=== PATIENT | female | born 1950 | race Caucasian/White ===

== ENCOUNTER 2021-02-26 07:43 | Day surgery (SDC) | payer OTHER, SELFPAY ==
[2021-02-20 14:15] VITALS: BMI 27.7
[2021-02-26 08:51] VITALS: BP 132/61; PULSE 54; RESP 20; TEMP 36.8; O2SAT 97
--- NOTE | 2021-02-26 08:53 | HO.ANESPROP2 ---
HPI - Anesthesia Eval Consult details Narrative: 71 yo female patient here for Left cataract extraction, IOL insertion PMFSH Past Medical History Medical History Elevated cholesterol History of skin cancer HTN (hypertension) Hx of benign neoplasm of brain Hx of retinal detachment Legally blind Family History Family history of problems with anesthesia: No Surgical History Surgical History H/O colonoscopy History of bladder suspension procedure History of lumbar fusion History of total left knee replacement Hx of brain surgery Hx of cataract extraction Hx of detached retina repair Hx of hernia repair History of Problems with Anesthesia: No Social History Social History Smoking Status: Former smoker Smoking Quit Date: 1990 Use of substances other than those prescribed or required for medical reasons: No Have you been hit, kicked, punched, or otherwise hurt by someone within the past year? If so, by whom?: No Are you DNR?: No Advance Directives Information Provided: No Recently lost weight without trying: No Eating poorly because of decreased appetite: No Nutrition Risks: No Nutritional Risk Poor oral hygiene: No Meds Allergies Allergy/AdvReac Type Severity Reaction Status Date / Time NSAIDS (Non-Steroidal Allergy Intermediate affected Verified 02/20/21 14:23 Anti-Inflamma renal function Active Medications: Current Medications Generic Name Dose Route Start Last Admin Trade Name Freq PRN Reason Stop Dose Admin Povidone Iodine 1 appl 02/26/21 08:27 Povidone Iodine 5 % Ophth Soln 30 Ml Bottle EYE-LEFT PREOP PRN Pre-Op Surgical Implant Prophy Home Medications Medication Instructions Recorded Confirmed Last Taken Type amitriptyline 25 mg PO BEDTIME 02/20/21 02/20/21 Unknown History docusate sodium [Colace] 100 mg PO DAILY 02/20/21 02/20/21 Unknown History lisinopril-hydrochlorothiazide 1 tab PO DAILY 02/20/21 02/20/21 Unknown History pantoprazole [Protonix] 40 mg PO DAILY 02/20/21 02/20/21 Unknown History rosuvastatin 10 mg PO BEDTIME 02/20/21 02/20/21 Unknown History Exam Exam Date and Time: February 26, 2021 0853 Height,Weight and Vital Signs: Height 5 ft 6 in Weight 78.018 kg Vital Signs Temp Pulse Resp BP Pulse Ox 02/26/21 08:51 98.2 F 54 20 132/61 97 Airway Mallampati Class: II TM Dist: >3cm Neck ROM: Full Heart: RRR Lungs: CTAB Assessment and Plan Assessment Anesthesia Assessment: Anesthesia Plan Discussed and Chart Reviewed Final Anesthetic Review NPO: Yes ASA Class: II Final Preanesthetic Review: No Changes in Pt Med Stat, Meds/Allgs Chart Reviewed, Consent Obtained/Reviewed and Anes Risks/Benef Reviewed Patient Risk: Low Procedure Risk: Low Assessment/Block/Sedation in SS: Assess/Block/Sedation-SS Anesthetic Plan Anesthetic Plan: MAC: Disposition: Standard PACU
[2021-02-26] MEDS: Tetracaine HCl/PF 0.5% Oph Sol 4 ML DROPS 1 DROP EYE-LEFT (09:04)
[2021-02-26] MEDS: Tropicamide 1 % Ophth Sol 3 ML BTL 1 DROP EYE-LEFT ×3 (09:05→09:14)
[2021-02-26] MEDS: Phenylephrine HCL 2.5% Oph SoL 2 ML BOTTLE 1 DROP EYE-LEFT ×3 (09:08→09:18)
[2021-02-26] MEDS: Lactated Ringers 1,000 ML 50 ML IV (09:14)
--- NOTE | 2021-02-26 09:39 | HO.PNOPHT ---
Ophthalmology Procedure Procedure Date of Service: 02/26/21 Ophthalmology Viscoelastic: Healon Duet Dual Pack Pro Ophthalmology Lenses: TECNIS [id number] (20.5) Procedure Notes: PREOPERATIVE DIAGNOSIS: Decreased visual acuity left eye secondary to cataract POSTOPERATIVE DIAGNOSIS: Same PROCEDURE: Left cataract extraction with intraocular lens insertion SURGEON: Greg Valente M.D. ANESTHESIA: Topical/MAC ESTIMATED BLOOD LOSS: None COMPLICATIONS: None After obtaining informed consent, the patient was brought to the operation room suite and placed in the supine position. After adequate sedation per anesthesia, topical drops of Tetracaine were given to the left eye. The eye was then prepped and draped in the usual sterile fashion. The operating room microscope was then positioned over the operative eye and a lid speculum placed. A paracentesis was created. Viscoelastic was then instilled into the anterior chamber. A three plane incision was then created temporally, utilizing a 2.85 mm keratome. Capsulotomy forceps were then utilized to create a circular tear capsulotomy. Hydrodissection and hydrodelineation were carried out until adequate mobilization of the nucleus occurred. Phacoemulsification was then utilized to remove the dense central nucleus followed by removal of the cortical material utilizing the automated aspiration irrigation unit. Viscoat elastic was instilled into the posterior capsular bag followed by placement of a posterior chamber intraocular lens without difficulty. The residual Viscoat elastic was then removed utilizing the automated IA machine. The wound was check and found to be watertight. The patient tolerated the procedure well and the lid speculum was removed. Intracameral injection of Vigamox 0.1 mL followed by a subtenon injection of Kenalog-40 0.2 mL were administered. The patient will be seen in the a.m.
[2021-02-26 10:00] VITALS: BP 143/70; PULSE 61; RESP 18; TEMP 36.1; O2SAT 96
== END 2021-02-26 10:17 | disposition home or self-care (01) ==
PROVIDERS: PCP Family Medicine; Visit Provider Ophthalmology
PROC: (CPT 66985; principal; 2021-02-26 10:00)
DX: H25.12 Age-related nuclear cataract, left eye (principal); H54.7 Unspecified visual loss; Z96.1 Presence of intraocular lens; I10 Essential (primary) hypertension; Z87.891 Personal history of nicotine dependence; Z79.899 Other long term (current) drug therapy; Z85.828 Personal history of other malignant neoplasm of skin
CPT/HCPCS: 66984; J2250; J3010; J3300; V2632

== ENCOUNTER 2022-03-04 11:33 | Outpatient (REF) | payer OTHER, SELFPAY ==
[2022-03-04 11:46] VITALS: BP 139/67; PULSE 63; RESP 16; TEMP 36.1; O2SAT 98
[2022-03-04 11:50] VITALS: BMI 28.3
== END 2022-03-04 11:34 | disposition home or self-care (01) ==
LOC: HO.MS 11:33
PROVIDERS: PCP Family Medicine; Visit Provider Ophthalmology
PROC: (CPT 66821; principal; 2022-03-04 12:30)
DX: H26.492 Other secondary cataract, left eye (principal); Z86.69 Personal history of other diseases of the nervous system and sense organs; Z96.1 Presence of intraocular lens; I10 Essential (primary) hypertension; Z87.891 Personal history of nicotine dependence; Z79.899 Other long term (current) drug therapy
CPT/HCPCS: 66821

== ENCOUNTER 2023-07-28 13:15 | Outpatient (AMB) | payer OTHER, SELFPAY ==
--- NOTE | 2023-07-28 13:30 | MHC.OFFVIS ---
Intake Vital Signs 07/28/23 13:39 Height 5 ft 5 in Weight 171 lb BMI 28.5 Blood Pressure Location Lt brachial Position Sitting Respiration 14 Pulse 66 Pulse Source Pulse Oximeter Pulse Oximetry (%) 97 Oxygen Delivery Method Room Air Intake Visit Reasons: SIJ pain Allergies NSAIDS (Non-Steroidal Anti-Inflamma Allergy (Intermediate, Verified 02/20/21 14:23) affected renal function Medication List - Last Reconciled 07/28/23 by Rosa Luo LPN acetaminophen-caffeine 500-65 mg 1 tab PO Q12H PRN amitriptyline 25 mg PO BEDTIME amlodipine 5 mg PO DAILY ascorbic acid (vitamin C) ER 1,000 mg PO .HS biotin 10,000 mcg PO DAILY coioeaeemq-awbsdamyqkiyo-ybuo 50-300-40 mg (Fioricet) 1 cap PO Q8H PRN gxntoas-N6-bdaj-copper-tammy 325 mg-12.5 mcg -2.75 mg 1 tab PO DAILY chondroitin sulfate A sodium 600 mg PO DAILY coenzyme Q10 100 mg PO DAILY diazepam 2 mg PO BID docusate sodium (Colace) 100 mg PO DAILY lutein 40 mg PO DAILY magnesium 500 mg PO DAILY omega 3-puo-nrq-fish oil 1,000 mg (120 mg-180 mg) (Fish Oil) 1 cap PO DAILY pantoprazole (Protonix) 40 mg PO DAILY rosuvastatin 10 mg PO BEDTIME turmeric root extract 800 mg PO DAILY valsartan-hydrochlorothiazide 320-25 mg 1 tab PO DAILY HPI SIJ pain HPI Details 73-year-old female who presents today to the office for an evaluation of SIJ pain. The patient had the right SIJ injection on 04/24/[address] Adair, which provided minimal relief. The patient fell down the basement stairs in the fall of 2021, sustained a skull fracture and a concussion, and was hospitalized for several days. Since then, she has had increasing pain in the right hip, especially with prolonged standing. The pain radiates down the leg, with numbness in the last two toes. She has pain with standing, uphill walking, stair climbing, and lying on the right side at night. She also has a long-standing history of low back issues and underwent L4-5 fusion surgery in 2009. Today her symptoms are mostly on the right side; they start in the lower back area as a stabbing, aching sensation that radiates into the right buttock, right thighs, and then the right calf, including the toes, where she has a pins and needles sensation. She is unable to sleep normally or do her daily activities. Weather changes and movements make the pain worse. Heat, topical medications, and oral medications make it better. She has been using Tylenol with some success. Her pain is worst early in the morning, when she first wakes up, and also later in the night. The rest of the day, she is a little bit better, but her intensity increases every day. History is also notable for osteopenia, and she was diagnosed after the review of the bone density scan result in June 2023. COUNT INCLUDES THE [facility] Medical History (Updated 08/05/23 @ 08:31 by Nick Lancaster MD) Pseudophakia Secondary cataract BRVO (branch retinal vein occlusion) Macular edema GERD (gastroesophageal reflux disease) Arthritis History of skin cancer Legally blind Hx of retinal detachment Hx of benign neoplasm of brain Elevated cholesterol HTN (hypertension) Surgical History Hx of brain surgery Hx of hernia repair History of bladder suspension procedure History of lumbar fusion History of total left knee replacement H/O colonoscopy Hx of cataract extraction Hx of detached retina repair Review of Systems Const All systems reviewed & are unremarkable except as noted in HPI and below Physical Exam Vital Signs: Last Vital Signs Pulse 66 07/28/23 13:39 Resp 14 07/28/23 13:39 Pulse Ox 97 07/28/23 13:39 Oxygen Delivery Method Room Air 07/28/23 13:39 BMI result Body Mass Index 28.5 General: Appears afebrile. Alert and oriented. Mood and affect appropriate. Follows and participates in conversation appropriately. Respiratory effort is unlabored. Able to transition from sit to stand unassisted. Ambulates with bilaterally normal heel strike and toe off. There is a tenderness overlying the right greater trochanteric region. Two well-healed incisions in the lower back paraspinal area from prior fusion surgery. Results Reviewed Results Reviewed: No imaging is available for review. 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 spinal cord stimulator vs. surgical intervention as a possible treatment option. Will schedule her for a right diagnostic medial cluneal nerve block. Discussed the risks and benefits of the procedure with the patient in detail. All questions were answered. The patient is on board with the plan. Will place a referral for psychology clearance. Once we have received psychology clearance, we will plan for trial of right medial cluneal nerve stimulator placement. The patient will receive a call from [facility] for the psychology assessment. Justification for interventional therapy: ? Patient with average pain > 6/10 ? Patient has exhausted conservative therapy ? Patient unable to tolerate physical therapy due to pain Scribed for Dr. Lancaster by Stephon Trevino, chief medical technologist, on 07/28/2023. I, Dr. Lancaster, have personally reviewed and agree with the information entered by the scribe. Coding Level of Care Code New Pt Level 4 (91416) Diagnoses Cluneal neuropathy G58.8 Sacroiliac joint dysfunction M53.3 Post laminectomy syndrome M96.1
[2023-07-28 13:39] VITALS: PULSE 66; RESP 14; O2SAT 97; BMI 28.5
== END 2023-07-28 14:17 | disposition home or self-care (01) ==
PROVIDERS: PCP Family Medicine; Visit Provider Internal Medicine
DX: G58.8 Other specified mononeuropathies (principal); M53.3 Sacrococcygeal disorders, not elsewhere classified; M96.1 Postlaminectomy syndrome, not elsewhere classified
CPT/HCPCS: 99204; 99214

== ENCOUNTER → 2023-07-28 13:15 | Outpatient (BNVA) | payer OTHER, SELFPAY | PROVIDERS: PCP Family Medicine; Visit Provider Internal Medicine ==

== ENCOUNTER 2023-08-25 12:47 | Outpatient (AMB) | payer OTHER, SELFPAY ==
--- NOTE | 2023-08-25 12:59 | MHC.OFFVIS ---
Intake Vital Signs 08/25/23 13:02 Height 5 ft 5 in Blood Pressure Location Lt brachial Position Sitting Respiration 12 Pulse Source Pulse Oximeter Intake Visit Reasons: RT Dx Cluneal Nerve Block/confirmed Allergies NSAIDS (Non-Steroidal Anti-Inflamma Allergy (Intermediate, Verified 08/25/23 13:03) affected renal function Medication List - Last Reconciled 08/25/23 by Rosa Luo LPN acetaminophen-caffeine 500-65 mg 1 tab PO Q12H PRN amitriptyline 25 mg PO BEDTIME amlodipine 5 mg PO DAILY ascorbic acid (vitamin C) ER 1,000 mg PO .HS biotin 10,000 mcg PO DAILY euecgsxsuu-katuwuwfjsaqx-sdkv 50-300-40 mg (Fioricet) 1 cap PO Q8H PRN jfqplrw-G4-wame-copper-tammy 325 mg-12.5 mcg -2.75 mg 1 tab PO DAILY chondroitin sulfate A sodium 600 mg PO DAILY coenzyme Q10 100 mg PO DAILY diazepam 2 mg PO BID docusate sodium (Colace) 100 mg PO DAILY lutein 40 mg PO DAILY magnesium 500 mg PO DAILY omega 4-kje-ynu-fish oil 1,000 mg (120 mg-180 mg) (Fish Oil) 1 cap PO DAILY pantoprazole (Protonix) 40 mg PO DAILY rosuvastatin 10 mg PO BEDTIME turmeric root extract 800 mg PO DAILY valsartan-hydrochlorothiazide 320-25 mg 1 tab PO DAILY HPI RT Dx Cluneal Nerve Block/confirmed HPI Details 73-year-old female who presents today to the office for a right diagnostic cluneal nerve block. Denies any recent cough, cold, infection, fever or other significant changes in medical history since last office visit. It was originally scheduled for cluneal nerve blocks, she requests an intra-articular sacroiliac joint injection instead. She states that she has an upcoming road trip and would like 1 some relief from a therapeutic injection. I discussed doing a sacroiliac joint injection under ultrasound versus fluoroscopy with a lower success rate for intra-articular access under ultrasound. Patient expressed understanding and is willing to proceed. [facility] Medical History (Updated 08/05/23 @ 08:31 by Nick Lancaster MD) Pseudophakia Secondary cataract BRVO (branch retinal vein occlusion) Macular edema GERD (gastroesophageal reflux disease) Arthritis History of skin cancer Legally blind Hx of retinal detachment Hx of benign neoplasm of brain Elevated cholesterol HTN (hypertension) Surgical History Hx of brain surgery Hx of hernia repair History of bladder suspension procedure History of lumbar fusion History of total left knee replacement H/O colonoscopy Hx of cataract extraction Hx of detached retina repair Review of Systems Const All systems reviewed & are unremarkable except as noted in HPI and below Physical Exam Vital Signs: Last Vital Signs Resp 12 08/25/23 13:02 General: Appears afebrile. Alert and oriented. Mood and affect appropriate. Follows and participates in conversation appropriately. Respiratory effort is unlabored. Able to transition from sit to stand unassisted. Ambulates with bilaterally normal heel strike and toe off. Office Procedures Joint Injection/Drain Joint Injection/Drain Details: Sacroiliac Joint Injection and medial cluneal nerve block, right The procedure, its benefits, and its risks were explained and written informed consent was obtained from the patient. Immediately prior to starting the procedure, a time-out safety check was conducted. The patient's identification, procedure name, procedure site, and procedure laterality were confirmed with the patient. ? Patient was placed prone on the fluoroscopy table and the lumbosacral area was prepped using ChloraPrep and draped with sterile drapein standard fashion. The sacroiliac joint was identified under ultrasound exam using a curvilinear probe. A 80 mm 21 gauge echo stim needle was slowly advanced towards the joint line. Once bony content was obtained, the needle was easily slid into the intra-articular space. The needle was adjusted until heme aspiration was negative. A total volume of 5mL of solution containing 30 mg Kenalog and rest 0.5% of bupivacaine was injected intra-articularly. The needle was then slightly withdrawn and directed towards the location of the medial cluneal nerves. Additional 1 mL containing 10 mg Kenalog was injected at this site. The needle was then withdrawn. The patient was observed for 10 minutes prior to discharge. The patient tolerated the procedure well. Patient denied any lower extremity weakness or numbness. Patient was observed for 30 min and was discharged after fulfilling the standard discharge criteria. Coding 18223 - Sacroiliac (Under ultrasound guidance) Procedure code (CPT) selection complete Nerve Block Procedure code (CPT) selection complete Results Reviewed Results Reviewed: No imaging is available for review. Assessment & Plan Assessment & Plan (1) Post laminectomy syndrome: Code(s): M96.1 - Postlaminectomy syndrome, not elsewhere classified (2) Sacroiliac joint dysfunction: Code(s): M53.3 - Sacrococcygeal disorders, not elsewhere classified (3) Cluneal neuropathy: Code(s): G58.8 - Other specified mononeuropathies Plan Patient is status post right therapeutic sacroiliac joint injection and cluneal nerve block. Patient tolerated procedure well and was discharged home in stable condition with discharge instructions. All questions were answered. We will follow-up in two weeks via telephone or in clinic to assess response to therapy. A follow-up appointment was made during today's visit. Scribed for Dr. Lancaster by Stephon Trevino, medical device, on 08/25/2023. I, Dr. Lancaster, have personally reviewed and agree with the information entered by the scribe. Coding Level of Care Code Procedure Only Diagnoses Post laminectomy syndrome M96.1 Sacroiliac joint dysfunction M53.3 Cluneal neuropathy G58.8 CPT Codes Coding - Joint 9: 56884 - Sacroiliac ([id number])
[2023-08-25 13:02] VITALS: RESP 12
== END 2023-08-25 14:11 | disposition home or self-care (01) ==
PROVIDERS: PCP Family Medicine; Visit Provider Internal Medicine
DX: M53.3 Sacrococcygeal disorders, not elsewhere classified (principal)
CPT/HCPCS: 27096

== ENCOUNTER → 2023-08-25 12:47 | Outpatient (BNVA) | payer OTHER, SELFPAY | PROVIDERS: PCP Family Medicine; Visit Provider Internal Medicine | DX: M96.1 Postlaminectomy syndrome, not elsewhere classified (principal); M53.3 Sacrococcygeal disorders, not elsewhere classified; G58.8 Other specified mononeuropathies | CPT/HCPCS: 27096; J0665; J3301 ==

== ENCOUNTER 2023-09-22 10:58 | Outpatient (AMB) | payer OTHER, SELFPAY ==
--- NOTE | 2023-09-22 11:00 | A.OFFVIS_ITS ---
Intake Vital Signs 09/22/23 11:02 Height 5 ft 5 in Weight 165 lb BMI 27.5 Blood Pressure Location Lt brachial Position Sitting Respiration 12 Pulse 63 Pulse Source Pulse Oximeter Pulse Oximetry (%) 95 Intake Visit Reasons: 4 week follow up / LMOVM Allergies NSAIDS (Non-Steroidal Anti-Inflamma Allergy (Intermediate, Verified 09/22/23 11:03) affected renal function Medication List - Last Reconciled 09/22/23 by Rosa Luo LPN acetaminophen-caffeine 500-65 mg 1 tab PO Q12H PRN amitriptyline 25 mg PO BEDTIME amlodipine 5 mg PO DAILY ascorbic acid (vitamin C) ER 1,000 mg PO .HS biotin 10,000 mcg PO DAILY qporyrjlps-vntbobvlqntjh-boez 50-300-40 mg (Fioricet) 1 cap PO Q8H PRN wchjkyy-Y7-yedk-copper-tammy 325 mg-12.5 mcg -2.75 mg 1 tab PO DAILY chondroitin sulfate A sodium 600 mg PO DAILY coenzyme Q10 100 mg PO DAILY diazepam 2 mg PO BID docusate sodium (Colace) 100 mg PO DAILY lutein 40 mg PO DAILY magnesium 500 mg PO DAILY omega 1-gfn-ira-fish oil 1,000 mg (120 mg-180 mg) (Fish Oil) 1 cap PO DAILY pantoprazole (Protonix) 40 mg PO DAILY rosuvastatin 10 mg PO BEDTIME turmeric root extract 800 mg PO DAILY valsartan-hydrochlorothiazide 320-25 mg 1 tab PO DAILY HPI 4 week follow up / LMOVM HPI Details 73-year-old female who presents today to the office for a four-week follow up. The patient reports >80% relief following the procedure. She states that she went on a [id number] road trip to [place] just after the procedure. She was able to sit for a prolonged period of time in the car during the trip without any pain. She states that her sharp, radiating pain has disappeared. She has mild pain with movements. She regularly visits the [facility] in [place]. She continues to perform exercises. Past procedure: Sacroiliac Joint Injection and medial cluneal nerve block, right: >80% relief. [facility] Medical History (Updated 08/05/23 @ 08:31 by Nick Lancaster MD) Pseudophakia Secondary cataract BRVO (branch retinal vein occlusion) Macular edema GERD (gastroesophageal reflux disease) Arthritis History of skin cancer Legally blind Hx of retinal detachment Hx of benign neoplasm of brain Elevated cholesterol HTN (hypertension) Surgical History Hx of brain surgery Hx of hernia repair History of bladder suspension procedure History of lumbar fusion History of total left knee replacement H/O colonoscopy Hx of cataract extraction Hx of detached retina repair Review of Systems Const All systems reviewed & are unremarkable except as noted in HPI and below Physical Exam Vital Signs: Last Vital Signs Pulse 63 09/22/23 11:02 Resp 12 09/22/23 11:02 Pulse Ox 95 09/22/23 11:02 BMI result Body Mass Index 27.5 General: Appears afebrile. Alert and oriented. Mood and affect appropriate. Follows and participates in conversation appropriately. Respiratory effort is unlabored. Able to transition from sit to stand unassisted. Ambulates with bilaterally normal heel strike and toe off. Results Reviewed Results Reviewed: No imaging is available for review. 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 The patient will follow up as needed for repeat injection. Scribed for Dr. Lancaster by Stephon Trevino, medical affairs leader, on 09/22/2023. I, Dr. Lancaster, have personally reviewed and agree with the information entered by the scribe. Coding Level of Care Code Est Pt Level 3 (21897) Diagnoses Sacroiliac joint dysfunction M53.3 Cluneal neuropathy G58.8
[2023-09-22 11:02] VITALS: PULSE 63; RESP 12; O2SAT 95; BMI 27.5
== END 2023-09-22 11:12 | disposition home or self-care (01) ==
PROVIDERS: PCP Family Medicine; Visit Provider Internal Medicine
DX: M53.3 Sacrococcygeal disorders, not elsewhere classified (principal); G58.8 Other specified mononeuropathies
CPT/HCPCS: 99213

== ENCOUNTER → 2023-09-22 10:58 | Outpatient (BNVA) | payer OTHER, SELFPAY | PROVIDERS: PCP Family Medicine; Visit Provider Internal Medicine | DX: M53.3 Sacrococcygeal disorders, not elsewhere classified (principal); G58.8 Other specified mononeuropathies | CPT/HCPCS: 99212 ==